=== PATIENT | male | born 1990 | race Caucasian/White ===

== ENCOUNTER 2018-08-18 21:23 | Emergency (ER) | payer OTHER ==
[2018-08-18 21:29] VITALS: BP 122/65
[2018-08-18] MEDS ORDERED: AMOXICILLIN/CLAVULANATE POT 875/125 MG TAB PO ONE (21:45)
[2018-08-18] MEDS ORDERED: ACETAMINOPHEN 500 MG TAB PO ONE (21:45)
[2018-08-18] MEDS ORDERED: IBUPROFEN 800 MG TAB PO ONE (21:45)
--- NOTE | 2018-08-18 21:45 | EDPHY ---
H & P Stated Complaint: sore throat Time Seen by Provider: 08/18/18 21:36 HPI/ROS: CHIEF COMPLAINT: "I think I have strep throat" HISTORY OF PRESENT ILLNESS: 28-year-old immunocompetent male complaining of sore throat since this morning. No Change in voice. No URI symptoms. No fever no chills. No change in voice. No nuchal rigidity. No headache. No nausea or vomiting. No chest pain. No abdominal pain. No rash. REVIEW OF SYSTEMS: 10 systems reviewed and negative with the exception of the elements mentioned in the history of present illness PAST MEDICAL & SURGICAL HISTORY: No pertinent medical or surgical history SOCIAL HISTORY:Denies alcohol abuse PHYSICAL EXAM (Prior to examination, patient consented to physical exam, hands were washed and my usual and customary physical exam procedures followed) 1) GENERAL: Well-developed, well-nourished, alert and oriented. Appears to be in no acute distress. 2) HEAD: Normocephalic, atraumatic 3) HEENT: Pupils equal, round, reactive to light bilaterally. Sclera anicteric. Oropharynx: Bilaterally, symmetrically enlarged exudative tonsils . No trismus no drooling. No hot potato voice. Moist Mucous membranes. Ears bilaterally with normal tympanic membranes. No evidence of otitis media otitis externa. 4) NECK: Full range of motion, no meningeal signs. Positive submandibular adenopathy 5) LUNGS: Clear auscultation bilaterally, no wheezes, no rhonchi, no retractions. 6) HEART: Regular rate and rhythm, no murmur, no heave, no gallop. 7) ABDOMEN: No guarding, no rebound, no focal tenderness, negative McBurney's, negative Hinds's, negative Rovsing's, negative peritoneal sign, no splenomegaly. No left upper quadrant pain. 8) MUSCULOSKELETAL: Moving all extremities, no focal areas of tenderness, no obvious trauma. No peripheral edema or discoloration. 9) BACK: No CVA tenderness, no midline vertebral tenderness, no fluctuance, no step-off, no obvious trauma, no visual or palpable abnormality. 10) SKIN: No rash, no petechiae. 11) Psychiatric: Patient is oriented X 3, there is no agitation. DIFFERENTIAL DIAGNOSIS: In no particular order, my differential diagnosis includes, but is not limited to, strep pharyngitis, viral pharyngitis, peritonsillar abscess, retropharyngeal abscess or plegmon, mononucleosis, meningitis, Lemierre syndrome. - Personal History Current Tetanus Diphtheria and Acellular Pertussis (TDAP): No - Medical/Surgical History Hx Asthma: No Hx Chronic Respiratory Disease: No Hx Diabetes: No Hx Cardiac Disease: No Hx Renal Disease: No Hx Cirrhosis: No Hx Alcoholism: No Hx HIV/AIDS: No Hx Splenectomy or Spleen Trauma: No - Social History Smoking Status: Never smoked Constitutional: Initial Vital Signs Temperature (C) 39.4 C H 08/18/18 21:27 Heart Rate 109 H 08/18/18 21:27 Respiratory Rate 20 08/18/18 21:27 Blood Pressure 122/65 H 08/18/18 21:27 O2 Sat (%) 96 08/18/18 21:27 O2 Delivery Mode Room Air Allergies/Adverse Reactions: No Known Allergies Allergy (Unverified 08/18/18 21:26) Home Medications: Medication Instructions Recorded Amoxicillin/Clavulanate Pot 875 mg PO BID #14 tab 08/18/18 [Augmentin 875 mg tab] oxyCODONE/APAP 5/325 [Percocet 1 tab PO Q6 #7 tab 08/18/18 5/325] Medical Decision Making ED Course/Re-evaluation: 9:46 p.m.: Patient has bilateral tonsils are symmetrically enlarged with white exudate. No trismus no drooling. Doubt peritonsillar abscess, doubt phlegmon or deep space infection, doubt Lemierre syndrome. I think the patient would benefit from steroids and I recommended steroids however he declines these. He has been informed of the risks of declining these. I have recommended empiric antibiotics, prescribing Augmentin which he accepts and recommend Tylenol and Motrin. I recommend follow up with ENT. I have provided him with my usual and customary pharyngitis precautions and instructions. Care of patient under supervision of secondary supervising physician Dr Miramontes . Departure - Departure Disposition: Home, Routine, Self-Care Clinical Impression: Acute streptococcal pharyngitis Instructions: Strep Throat (ED) Additional Instructions: Return to the ER immediately if you cannot swallow, have drooling, fevers, neck stiffness, cannot open your jaw, or any other symptoms that concern you. Adult Pain & Fever Control: We recommend Acetaminophen (Tylenol) and Ibuprofen (Motrin,Advil) for pain and fever control. When fever is high or pain severe, both drugs can be used at the same time, but at different intervals. Please note the time differences. Your dose is: Acetaminophen [650]mg every 4 to 6 hours Ibuprofen 600mg every 6 hours with food Note: do not take Acetaminophen with Hydrocodone (Vicodin, Lortab) or Oycodone (Percocet). These medications also contain Acetaminophen. No more than 3000mg of Acetaminophen should be taken in 24 hours (for an adult). Prescriptions: Amoxicillin/Clavulanate Pot [Augmentin 875 mg tab] 875 mg PO BID #14 tab oxyCODONE/APAP 5/325 [Percocet 5/325] 1 tab PO Q6 #7 tab
[2018-08-18] MEDS ORDERED: OXYCODONE/APAP 5/325MG PREPACK#4 BTL TAKEHOME ONE (21:51)
== END 2018-08-18 22:04 | disposition home or self-care (01) ==
DX: J02.0 Streptococcal pharyngitis (principal)